=== PATIENT | male | born 1970 | race African-American/Black ===

== ENCOUNTER 2025-04-17 20:46 | Emergency (ER) | payer SELFPAY ==
[~2025-04-17] VITALS: Ht 172.7 cm; Wt 58.0 kg
[2025-04-17 21:13] VITALS: O2SAT 100
[2025-04-18 04:08] LABS: BASOPHILS % 1.0 % (0.0-2.0); EOSINOPHILS % 1.2 % (0.0-5.0); HEMATOCRIT. 50.2 % (42.0-52.0); HEMOGLOBIN. 17.3 g/dL (14.0-18.0); LYMPHOCYTES % 39.1 % (20.0-50.0); MEAN PLATELET VOLUME 9.4 fl (7.4-10.4); MONOCYTES % 11.1 % (2.0-8.0); NEUTROPHILS % 47.6 % (40.0-76.0); PLATELET 176 x1000/uL (130-400); RED BLOOD CELL COUNT 5.37 mill/uL (4.7-6.1); RED CELL DISTRIBUTION WIDTH 14.4 % (11.6-14.6)
[2025-04-18 04:31] LABS: CREATININE 1.5 mg/dL (0.6-1.3); UREA NITROGEN BLOOD 22 mg/dL (9-23)
[2025-04-18 04:32] LABS: TROPONIN I HIGH SENSITIVITY 6 ng/L (3.0-53)
[2025-04-18 04:33] LABS: ASPARTATE AMINOTRANSFERASE 16 IU/L (<34); BILIRUBIN DIRECT 0.2 mg/dL (<=3.0); BILIRUBIN TOTAL 0.7 mg/dL (0.1-1.0); INR 1.1; PROTEIN TOTAL 7.6 g/dL (6.0-8.3)
[2025-04-18] MEDS ORDERED: CYCL10TA21 MT (06:46)
[2025-04-18 07:11] VITALS: BP 120/73; PULSE 85; RESP 12; TEMP 36.7; O2SAT 97
== END 2025-04-18 07:12 | disposition home or self-care (01) ==
LOC: ER 20:46
DX: F41.9 Anxiety disorder, unspecified (principal); R07.9 Chest pain, unspecified
CPT/HCPCS: 36415; 71045; 80048; 80076; 84484; 85025; 93005; 99285